=== PATIENT | female | born 1970 | race African-American/Black ===

== ENCOUNTER 2017-10-25 05:22 | Emergency (ER) | payer SELFPAY ==
[~2017-10-25] VITALS: Ht 162.6 cm; Wt 73.0 kg
[2017-10-25 06:04] LABS: HEMATOCRIT 38.9 % (36.0-46.0); HEMOGLOBIN 13.4 G/DL (11.9-15.5); MCH 33.8 PG (29.0-34.0); MCHC 34.4 G/DL (30.0-36.0); MCV 98.2 FL (83-99); PLATELET COUNT 258 K/uL (156-360); RBC DIS.WIDTH-CV 11.7 % (11.8-14.6); RBC DIS.WIDTH-SD 42.6 % (39-53); RED BLOOD COUNT 3.96 M/uL (3.80-5.20)
[2017-10-25 06:14] LABS: CHLORIDE 105 mEq/L (99-109); POTASSIUM 4.2 mEq/L (3.7-5.4); SODIUM 139 mEq/L (136-147)
[2017-10-25 06:16] LABS: GLUCOSE 92 mg/dL (70-99)
[2017-10-25 06:20] LABS: CREATININE 0.9 mg/dL (0.6-1.3)
[2017-10-25 06:21] LABS: UREA NITROGEN (BUN) 21 mg/dL (9-23)
[2017-10-25 06:25] LABS: GFR ESTIMATE (CALCULATED) > 59 mL/min/
[2017-10-25 06:28] LABS: TROP-I INTERPRETATION NEGATIVE; TROPONIN-I < 0.01 ng/mL (0.0-0.30)
[2017-10-25 07:05] LABS: ALBUMIN 4.2 G/DL (3.2-4.8); DIRECT BILIRUBIN 0.1 mg/dL (0.0-0.3); TOTAL BILIRUBIN 0.5 MG/DL (0.0-1.0)
[2017-10-25 07:11] LABS: ALKALINE PHOSPHATASE 43 IU/L (3-129); ALT (GPT) 12 IU/L (3-49); AST (GOT) 17 IU/L (2-34); LIPASE 25 U/L (1.0-51.0); TOTAL PROTEIN 6.9 G/DL (6.4-8.3)
[2017-10-25 08:03] VITALS: BP 111/74
[2017-10-25] MEDS ORDERED: PREDNISONE50 MG PO (08:05)
[2017-10-25] MEDS ORDERED: NAPROSYN500 MG PO (08:05)
[2017-10-25] MEDS ORDERED: PROAIR RESPICL90 MCG IH (08:05)
== END 2017-10-25 08:15 | disposition home or self-care (01) ==
LOC: EME 05:22
PROVIDERS: Emergency Medicine
DX: J20.9 Acute bronchitis, unspecified (principal); R07.89 Other chest pain; J45.909 Unspecified asthma, uncomplicated; Z82.49 Family history of ischemic heart disease and other diseases of the circulatory system
CPT/HCPCS: 71046; 80048; 80076; 83690; 84484; 85027; 85379; 93005; 94640; 99281; 99284; J7512